=== PATIENT | female | born 1985 | race Two or more races ===

== ENCOUNTER 2017-11-12 08:47 | Outpatient (CLI) | payer BC, MEDICAID | END 2017-11-12 10:20 | disposition home or self-care (01) | LOC: OBT 08:47 → L-D 08:47 → OBT 10:20 | DX: O36.8120 Decreased fetal movements, second trimester, not applicable or unspecified (principal); Z3A.24 24 weeks gestation of pregnancy | CPT/HCPCS: 76815 ==